=== PATIENT | male | born 1980 | race Caucasian/White ===

== ENCOUNTER 2022-07-17 10:42 | Emergency (ER) | payer SELFPAY ==
--- NOTE | ~2022-07-17 | CT_ITS ---
Non-contrast Head CT History: Confusion Technique: Axial non-contrast imaging of the brain was performed. Dose reduction technique was used on this scan by utilizing automated exposure control and iterative reconstruction technique. The dose -length product (DLP) was 681.00 mGy-cm. Findings: There is no evidence of intracranial hemorrhage, mass lesion, or acute infarct. Brain par enchyma appears normal. The ventricles and subarachnoid spaces are normal in size. The calvarium ap pears normal. The visualized paranasal sinuses and mastoid air cells are clear. Impression: No significant abnormality seen. Reviewed, dictated and finalized at location . Impression: No significant abnormality seen.
[2022-07-17 10:46] VITALS: BP 134/78; PULSE 97; RESP 17; TEMP 36.6; O2SAT 97
--- NOTE | 2022-07-17 11:01 | ECG_ITS ---
Measurements Intervals [place] Rate: 83 P: 52 NM: 167 QRS: 41 QRSD: 102 T: 0 QT: 379 QTc: 448 Interpretive Statements SINUS RHYTHM NORMAL ECG NO PREVIOUS ECG AVAILABLE FOR COMPARISON Electronically Signed On 07-17-2022 16:34:38 CDT by Maynor Schuler M.D.
[2022-07-17 11:22] LABS: Basophils Absolute Auto 0.06 K/mm3 (0.00-0.10); Basophils Percent Auto 0.5 % (0.0-1.0); Eosinophils Absolute Auto 0.24 K/mm3 (0.02-0.50); Hematocrit 41.9 % (40.0-54.0); Hemoglobin 13.5 g/dL (14.0-18.0); Immature Granulocyte Absolute 0.04 K/mm3 (0.00-0.00); Immature Granulocyte Percent A 0.3 % (0.0-0.0); Lymphocytes Absolute Auto 3.49 K/mm3 (1.10-4.50); Lymphocytes Percent Auto 28.9 % (18.0-42.0); Mean Corpuscular HGB Conc 32.2 g/dL (32.0-36.0); Mean Corpuscular Hemoglobin 27.1 pg (27.0-31.0); Mean Platelet Volume 9.3 fl (8.7-11.0); Monocytes Absolute Auto 0.68 K/mm3 (0.10-0.90); Monocytes Percent Auto 5.6 % (2.0-11.0); Neutrophils Absolute Auto 7.6 K/mm3 (1.7-7.2); Neutrophils Percent Auto 62.7 % (50.0-70.0); Platelet Count Result 199 K/mm3 (150-420); Red Blood Count 4.99 M/mm3 (4.70-6.10); Red Cell Distribution Width 13.5 % (11.6-14.4); White Blood Count 12.1 K/mm3 (4.8-10.8)
[2022-07-17 11:37] LABS: Alanine Aminotransferase 73 U/L (16-63); Albumin Level 3.7 g/dL (3.4-5.0); Alkaline Phosphatase 66 U/L (46-116); Anion Gap 8 mmol/L (8-16); Aspartate Amino Transferase 55 U/L (15-37); Bilirubin,Total 0.5 mg/dL (0.00-1.00); Blood Urea Nitrogen 16 mg/dL (7-18); Calcium 8.7 mg/dL (8.5-10.1); Carbon Dioxide 28 mmol/L (21-32); Chloride 105 mmol/L (98-108); Estimated Glomerular Filt Rate > 60; Glucose 119 mg/dL (70-99); Osmolality Calculated 294 mOsm/kg (285-295); Potassium 3.4 mmol/L (3.5-5.1); Sodium 141 mmol/L (136-145); Total Protein 7.6 g/dL (6.4-8.2)
--- NOTE | 2022-07-17 12:00 | PC.NURSE ---
patient provided lunch, sandwich, chips and drink.
--- NOTE | 2022-07-17 12:51 | ED.GENADULT ---
HPI - General Adult General Chief complaint: Eye Problems Stated complaint: blurred vison and memory issues Time Seen by Provider: 07/17/22 11:01 Source: patient Mode of arrival: ambulatory Limitations: no limitations History of Present Illness HPI narrative: this is a 42-year-old gentleman that presents with some history of scar on the occipital scalp is an old scar but the patient states that he is concerned for the fact that he does not recall when he acquired this car and was requesting a CT scan of the brain. Otherwise there is some numbness and tingling in his fingers with no shortness of breath no fever chills no chest pain no shortness of breath patient does appear anxious, there is no nausea vomiting no abdominal pain no dysuria no hematuria no flank pain. Onset (ago): week(s) Severity: mild Related Data Home Medications Medication Instructions Recorded Confirmed No Home Medications 07/17/22 07/17/22 Allergies Allergy/AdvReac Type Severity Reaction Status Date / Time No Known Allergies Allergy Verified 07/17/22 10:44 Review of Systems Review of Systems: All systems reviewed & are unremarkable except as noted in HPI and below PMFSH Past Medical History Medical History Anxiety Exam Const: General: healthy appearing Nutritional Appearance: well nourished Orientation/consciousness: patient oriented x3 Limitations: no limitations HENMT: Head: normal to inspection Eyes: Conjunctivae: conjunctivae normal Pupils: Equal, round and reactive pupils present EOM: EOMs intact bilaterally Neck: Neck: normal visual inspection Chest: Chest palpation & inspection: normal inspection of the chest Resp: Effort & Inspection: normal respiratory effort Auscultation: clear to auscultation bilaterally Cardio: Rate: regular rate Rhythm: regular rhythm GI: GI Palp: Yes Soft to palpation Auscultation: normal bowel sounds Skin: General skin exam: normal color Rashes: no rashes Wounds: no wounds Neuro: General: patient oriented x3, moves all extremities and no meningeal signs Cranial nerves: Yes Nystagmus not present Speech: normal speech Gait exam (Neuro): Normal gait present Extrem: General: normal to inspection Psych: Mental Status: mental status grossly normal Affect: Anxious affect present Attitude: cooperative Course Course Emergency Course: CT brain reviewed with patient and normal as well as his labs. Vital Signs Vital signs: Vital Signs Temperature 36.6 C 07/17/22 10:46 Pulse Rate 97 07/17/22 10:46 Respiratory Rate 17 07/17/22 10:46 Blood Pressure 134/78 07/17/22 10:46 Pulse Oximetry 97 07/17/22 10:46 Temperature 36.6 C 07/17/22 10:46 Pulse Rate 97 07/17/22 10:46 Respiratory Rate 17 07/17/22 10:46 Blood Pressure 134/78 07/17/22 10:46 Pulse Oximetry 97 07/17/22 10:46 Medical Decision Making Vital Signs Vital Signs: Vital Signs Temperature 36.6 C 07/17/22 10:46 Pulse Rate 97 07/17/22 10:46 Respiratory Rate 17 07/17/22 10:46 Blood Pressure 134/78 07/17/22 10:46 Pulse Oximetry 97 07/17/22 10:46 Temperature 36.6 C 07/17/22 10:46 Pulse Rate 97 07/17/22 10:46 Respiratory Rate 17 07/17/22 10:46 Blood Pressure 134/78 07/17/22 10:46 Pulse Oximetry 97 07/17/22 10:46 Lab Data 07/17/22 11:17 07/17/22 11:17 Labs: Lab Results 07/17/22 07/17/22 Range/Units 11:17 11:17 WBC 12.1 H (4.8-10.8) K/mm3 RBC 4.99 (4.70-6.10) M/mm3 Hgb 13.5 L (14.0-18.0) g/dL Hct 41.9 (40.0-54.0) % MCV 84.0 (78.0-102.0) fL MCH 27.1 (27.0-31.0) pg MCHC 32.2 (32.0-36.0) g/dL RDW 13.5 (11.6-14.4) % Plt Count 199 (150-420) K/mm3 MPV 9.3 (8.7-11.0) fl Immature Gran % (Auto) 0.3 H (0.0-0.0) % Neut % (Auto) 62.7 (50.0-70.0) % Lymph % (Auto) 28.9 (18.0-42.0) % [place] % (Auto) 5.6 (2.0-11.0)
[2022-07-17 13:02] VITALS: BP 133/78; PULSE 80; RESP 17; TEMP 36.6; O2SAT 98
== END 2022-07-17 13:04 | disposition home or self-care (01) ==
PROVIDERS: Emergency Provider Emergency Medicine
DX: F41.9 Anxiety disorder, unspecified (principal)
CPT/HCPCS: 36415; 70450; 80053; 85025; 93005; 99284